=== PATIENT | male | born 1980 | race African-American/Black ===

== ENCOUNTER 2021-11-23 18:07 | Emergency (ER) | payer OTHER ==
[~2021-11-23] VITALS: Ht 172.7 cm; Wt 77.0 kg
[2021-11-23] MEDS ORDERED: IBUPROFEN 600MG TABLET PO STA (23:44)
[2021-11-23] MEDS ORDERED: BACITRACIN ZINC OINT UDPKT TOP ONE (23:45)
[2021-11-23] MEDS ORDERED: LIDOCAINE HCL/PF 1% 10 MG/ML 5ML VIAL INFIL ONE (23:45)
[2021-11-24] MEDS ORDERED: CLOT15CR27 TP (02:11)
[2021-11-24] MEDS ORDERED: CEPH500C2 PO (02:11)
[2021-11-24] MEDS ORDERED: SULF1TAB48 PO (02:11)
[2021-11-24] MEDS ORDERED: IBUP-2029 PO (02:11)
[2021-11-24 02:43] VITALS: BP 121/61
== END 2021-11-24 02:52 | disposition home or self-care (01) ==
LOC: ER 18:07
DX: L03.031 Cellulitis of right toe (principal); B37.83 Candidal cheilitis; B35.1 Tinea unguium; D23.71 Other benign neoplasm of skin of right lower limb, including hip; M79.604 Pain in right leg
CPT/HCPCS: 73590; 73660; 99284; J3490; Z7610

== ENCOUNTER 2024-11-19 07:36 | Emergency (ER) | payer MEDICAID, OTHER ==
[~2024-11-19] VITALS: Ht 167.6 cm; Wt 72.5 kg
[~2024-11-19 07:36] MED LIST: CEPH500C2 PO; CLOT15CR27 TP; IBUP-2029 PO; SULF1TAB48 PO
[2024-11-19 07:39] VITALS: TEMP 37; O2SAT 100
[2024-11-19 08:27] LABS: CLARITY URINE CLEAR (CLEAR); COLOR URINE YELLOW (YELLOW); GLUCOSE URINE NEGATIVE (NEGATIVE); KETONES URINE NEGATIVE (NEGATIVE); LEUKOCYTE ESTERASE URINE NEGATIVE (NEGATIVE); NITRITE URINE NEGATIVE (NEGATIVE); OCCULT BLOOD URINE NEGATIVE (NEGATIVE); PH URINE 6.5 (4.5-8.0); PROTEIN URINE NEGATIVE (NEGATIVE); SPECIFIC GRAVITY URINE 1.013 (1.005-1.030); UROBILINOGEN URINE 0.2 E.U./dL (0.2-1.0)
[2024-11-19] MEDS ORDERED: TAMS-54 PO (08:44)
[2024-11-19 09:01] VITALS: BP 125/107; PULSE 79; RESP 16; O2SAT 100
== END 2024-11-19 09:03 | disposition home or self-care (01) ==
LOC: ER 07:49
DX: R30.0 Dysuria (principal); Z79.899 Other long term (current) drug therapy
CPT/HCPCS: 81003; 99283; Z7610